=== PATIENT | male | born 2000 | race African-American/Black ===

== ENCOUNTER 2020-07-09 15:40 | Emergency (ER) | payer OTHER, MEDICAID, SELFPAY ==
[2020-07-09 15:43] VITALS: BP 142/90; PULSE 84; RESP 14; TEMP 36.9; O2SAT 99
[2020-07-09 15:52] VITALS: BP 142/90; PULSE 84; RESP 18; TEMP 36.9; O2SAT 99
[2020-07-09 15:55] LABS: Basophils Percent Auto 0.2 % (0.2-1.2); Eosinophils Absolute Auto 0.1 K/mm3 (0-0.3); Eosinophils Percent Auto 1.5 % (0-4.4); Hematocrit 50.6 % (42.0-52.0); Hemoglobin 16.5 g/dL (14.0-18.0); Immature Granulocyte Absolute 0.01 K/mm3 (0.00-0.031); Immature Granulocyte Percent A 0.2 % (0-0.5); Lymphocytes Absolute Auto 0.74 K/mm3 (0.9-3.2); Lymphocytes Percent Auto 18.2 % (18.3-44.2); Mean Corpuscular HGB Conc 32.6 g/dl (32-36); Mean Corpuscular Hemoglobin 31.1 pg (26-34); Mean Corpuscular Volume 95.5 fl (80-100); Mean Platelet Volume 10.8 fl (7.4-10.4); Monocytes Absolute Auto 0.5 K/mm3 (0.1-0.6); Monocytes Percent Auto 12.5 % (2.6-8.5); Neutrophils Absolute Auto 2.7 K/mm3 (1.3-6.7); Neutrophils Percent Auto 67.4 % (45.5-73.1); Platelet Count Result 144 k/mm3 (150-375); White Blood Count 4.1 K/mm3 (4.5-10.0)
[2020-07-09 16:05] LABS: Alanine Aminotransferase 26 U/L (4-50); Albumin Level 4.4 g/dL (3.5-5.1); Alkaline Phosphatase 78 U/L (38-126); Anion Gap 4 mmol/L (8-16); Aspartate Amino Transferase 32 U/L (17-59); Bilirubin,Total 0.4 mg/dL (0.2-1.3); Blood Urea Nitrogen 13 mg/dL (9-20); Calcium 8.7 mg/dL (8.4-10.2); Carbon Dioxide 34 mmol/L (22-30); Chloride 101 mmol/L (98-107); Estimated CRCL calculation 133 ml/min; Estimated Glomerular Filt Rate > 60; Glucose 91 mg/dL (75-110); Lipase 66 U/L (23-300); Potassium 3.8 mmol/L (3.4-5.0); Sodium 139 mmol/L (137-145)
[2020-07-09 16:08] LABS: Add Urine Microscopic? YES; Appearance Urine Clear (Clear); Bilirubin Urine Negative (Negative); Blood Urine 1+ (Negative); Color Urine Yellow (Yellow); Glucose Urine UA Negative (Negative); Ketones Urine Negative (Negative); Leukocyte Esterase Ur Negative LEU/UL (Negative); Mucus Urine Rare /lpf; Nitrate Urine Negative (Negative); Protein Urine 1+ mg/dL (Negative); WBC Urine 0-3 /hpf
--- NOTE | 2020-07-09 16:18 | ED.ABDPAIN ---
HPI - Abdominal Pain General Chief Complaint: Abdominal Pain Stated Complaint: epigastric pain Time Seen by Provider: 07/09/20 16:01 Source: patient Mode of arrival: ambulatory Limitations: no limitations History of Present Illness HPI narrative: Patient is a 20-year-old male who presents with abdominal pain has been intermittent for the last couple of days noting that he has had some aching pain in the epigastrium typically worse at night while lying flat patient denies similar occurrence in the past patient on arrival today notes he does not have any pain patient did take Tums and notes that he believes it may have helped patient denies diarrhea vomiting fever chills or other complaints presents in no distress does not appear uncomfortable Related Data Allergies Allergy/AdvReac Type Severity Reaction Status Date / Time No Known Allergies Allergy Verified 07/09/20 15:54 Review of Systems Review of Systems: All systems reviewed & are unremarkable except as noted in HPI and below PMFSH Surgical History Surgical History (Updated 07/09/20 @ 16:20 by Cecil Arredondo PA-C) H/O hernia repair Social History Social History (Updated 07/09/20 @ 16:20 by Cecil Arredondo PA-C) Smoking status: Never smoker Exam Narrative: Exam Narrative: GENERAL: Well-appearing, well-nourished, and in no acute distress. HEAD: Normocephalic, atraumatic. EYES: PERRLA and EOMI. ENT: Nares clear, no rhinorrhea or epistaxis. Mucous membranes moist. CHEST: Clear to auscultation. No respiratory distress. No wheezes rales or rhonchi HEART: Regular rate and rhythm. No murmur heard. Normal peripheral pulses. ABDOMEN: Soft, nontender, nondistended EXTREMITIES: Normal range of motion. No edema. SKIN: Warm, dry, no rash. NEURO: No focal deficits. Alert and oriented x3. Cranial nerves II through XII grossly intact. Normal speech and gait PSYCH: Normal mood and affect. Course Course Emergency Course: Patient in the room in no distress aware of case findings treatment plan and diagnosis agreeing to follow-up as instructed or to return if symptoms worsen or concerns nontender abdominal exam vital signs stable and intact patient will be referred to primary care for further evaluation Vital Signs Vital signs: Vital Signs Temperature 98.5 F 07/09/20 15:43 Pulse Rate 84 07/09/20 15:43 Respiratory Rate 14 07/09/20 15:43 Blood Pressure 142/90 H 07/09/20 15:43 Pulse Oximetry 99 07/09/20 15:43 Temperature 98.5 F 07/09/20 15:52 Pulse Rate 84 07/09/20 15:52 Respiratory Rate 18 07/09/20 15:52 Blood Pressure 142/90 H 07/09/20 15:52 Pulse Oximetry 99 07/09/20 15:52 MDM - Abdominal Pain MDM Narrative Medical decision making narrative: Patient in the room with intermittent abdominal pain nontender exam in the ER patient with normal vital signs no high risk changes in the blood work patient felt appropriate for outpatient reevaluation given the nontender exam patient has been given primary care referral and will also be placed on Pepcid Differential Diagnosis Differential diagnosis: Likely abdominal pain, acute appendicitis, calculus of kidney, constipation, diverticulitis, pancreatitis and small bowel obstruction Lab Data Result diagrams: 07/09/20 15:48 07/09/20 15:48 Labs: Lab Results 07/09/20 07/09/20 07/09/20 Range/Units 15:48 15:48 15:57 WBC 4.1 L (4.5-10.0) K/mm3 RBC 5.30 (4.6-6.20) M/mm3 Hgb 16.5 (14.0-18.0) g/dL Hct 50.6 (42.0-52.0) % MCV 95.5 (80-100) fl MCH 31.1 (26-34) pg MCHC 32.6 (32-36) g/dl RDW 12.0 (11.5-14.5) % Plt Count 144 L (150-375) k/mm3 MPV 10.8 H (7.4-10.4) fl Immature Gran % (Auto) 0.2 (0-0.5) % Neut % (Auto) 67.4 (45.5-73.1) % Lymph % (Auto) 18.2 L (18.3-44.2) % Howard % (Auto) 12.5 H (2.6-8.5) % Eos % (Auto) 1.5 (0-4.4) % Baso % (Auto) 0.2 (0.2-1.2) % Lymph # (Auto) 0.74 L
[2020-07-09 17:55] VITALS: BP 132/78; PULSE 80; RESP 20; O2SAT 99
== END 2020-07-09 17:56 | disposition home or self-care (01) ==
LOC: ANHED 16:32
PROVIDERS: Emergency Provider Emergency Medicine; PCP Emergency Medicine
DX: R10.13 Epigastric pain (principal)
CPT/HCPCS: 36415; 80053; 81001; 83690; 85025; 99283